=== PATIENT | female | born 1935 | race Caucasian/White ===

== ENCOUNTER 2024-01-28 11:43 | Outpatient (CLI) | payer MEDICARE, SELFPAY | END 2024-01-28 11:44 | disposition home or self-care (01) | LOC: NFLDREF 02-01 19:01 | PROVIDERS: PCP Physician Assistant Medical; Referring Provider Physician Assistant Medical; Visit Provider Physician Assistant Medical | DX: E03.8 Other specified hypothyroidism (principal); E78.2 Mixed hyperlipidemia | CPT/HCPCS: 80053; 80061; 84439; 84443 ==

== ENCOUNTER 2024-05-12 12:58 | Outpatient (CLI) | payer MEDICARE, SELFPAY | END 2024-05-12 12:59 | disposition home or self-care (01) | LOC: NFLDREF 05-13 08:29 | PROVIDERS: PCP Physician Assistant Medical; Referring Provider Physician Assistant Medical; Visit Provider Physician Assistant Medical | DX: E03.8 Other specified hypothyroidism (principal) | CPT/HCPCS: 84439; 84443 ==

== ENCOUNTER 2024-07-29 10:41 | Outpatient (CLI) | payer MEDICARE, SELFPAY | END 2024-07-29 10:42 | disposition home or self-care (01) | LOC: FRMREF 10:42 | PROVIDERS: PCP Physician Assistant Medical; Visit Provider Physician Assistant Medical | DX: E03.8 Other specified hypothyroidism (principal) | CPT/HCPCS: 84443 ==

== ENCOUNTER 2024-09-26 13:00 | Outpatient (RCR) | payer MEDICARE, SELFPAY ==
--- NOTE | 2024-08-02 11:42 | PT.OPE ---
PT [place] Out[facility] Eval PT [facility] Outpatient Eval Start: 08/02/24 10:40 Freq: Status: Active Protocol: Document 08/02/24 10:40 [place] (Rec: 08/02/24 11:20 [place] No Response) E-signed By Remigio Darby, PT, ATC Physical Therapy Outpatient Evaluation Insurance Information Insurance Name Medicare B,[employer] Medical Diagnosis R10.32 left lower quadrant pain Treating Diagnosis L groin/adductor pain Imaging Report Information X-rays in December did not show any significant hip degeneration R or L. Referring MD Baker Subjective Subjective Reports falling last spring landing upon her buttocks. X- rays performed and did not identify a fracture. Current symptoms of L inner groin pain began sometime mid to late summer and had been progressively been worsening until taking the Prednisone. Initial sitting, transferring from sit to stand and walking at times elicits the discomfort. At times it had been as high as an 8/10 but since taking the Prednisone it has declined to a 2-3/10. Lives alone in an apartment and drives independently to [employer], shopping etc.. Date of Last Physician Visit 07/29/24 Current Work Status Retired,Unemployed Precautions Weight Bearing Status Full Weight Bearing Therapy Limitations/Systems Review Not Limited Objective Range of Motion PROM R and L Flex 100 Ext 10 ER 45 IR 10 Abd 40 degrees, L end range pain producing. Strength 5/5 all patterns Resisted ABD on the L creates discomfort. Palpation Tender along proximal third of L adductor into insertion on the inferior pubis bone. Balance & Gait Normal and symmetric LE pattern. Posture Flat back-lumar, anterior pelvic tilt Sensation/Reflexes Normal and symetric. Assessment Assessment/Impression Yessica is a very pleasant and independent 89 year old woman experiencing intermittent left groin pain. L hip passive ROM , anthony Flex and IR, did not elicit symptoms. Only end range ABD and resisted ADDUC from end range did indicating a soft tissue vs. arthritic cause to her symptoms. A skilled PT program focusing on gentle stretching and antagonist before agonist strengthening is advised. Ultimately, left hip pain needs to subside to improve concentration and ability with ADL's and lessen risk for falls. Primary Functional Limitations Transitional movements Walking Plan of Care Rehabilitation Potential Good Physical Therapy Goals 1.[place] with her home ex program for stretching and strengthening. 2.Able to sit and stand transition with pain of 2/10 or less consistently once she completes course of Prednisone . 3.To walk x 10 min while shopping in absence of L groin pain. Coordination/Communication With Referral Source Treatment Plan/Direct Interventions Manual Therapy,Self-Care/Home Management,Therapeutic Activities,Therapeutic Exercises Frequency/Duration 6-12 visits Patient Will Be Discharged From Therapy Independent w/HEP, Independently Progressing Evaluation Billing Untimed Code Treatment Minutes 30 PT Eval No Charge No Complexity Low Certification Information Provider Signature Required Yes Provider Signature Shows Agreement With POC & Medical Necessity Physician NPI Number Write NPI# Here Physician Comment/Change : Physician Signature & Date Requested Please Sign/Date Here
== END 2024-09-26 15:19 | disposition home or self-care (01) ==
PROVIDERS: PCP Physician Assistant Medical; Visit Provider Family Medicine
DX: R10.32 Left lower quadrant pain (principal); Z51.89 Encounter for other specified aftercare
CPT/HCPCS: 97110; 97140; 97161

== ENCOUNTER 2025-02-16 11:30 | Outpatient (CLI) | payer MEDICARE, SELFPAY | END 2025-02-16 11:31 | disposition home or self-care (01) | LOC: NFLDREF 02-20 15:16 | PROVIDERS: PCP Physician Assistant Medical; Referring Provider Physician Assistant Medical; Visit Provider Physician Assistant Medical | DX: G25.0 Essential tremor (principal); F32.0 Major depressive disorder, single episode, mild; E03.8 Other specified hypothyroidism; E78.2 Mixed hyperlipidemia | CPT/HCPCS: 80053; 80061; 84439; 84443 ==

== ENCOUNTER 2025-05-25 14:00 | Outpatient (CLI) | payer MEDICARE, SELFPAY | END 2025-05-25 14:01 | disposition home or self-care (01) | LOC: NFLDREF 06-09 13:49 | PROVIDERS: PCP Physician Assistant Medical; Referring Provider Physician Assistant Medical; Visit Provider Physician Assistant Medical | DX: E03.8 Other specified hypothyroidism (principal) | CPT/HCPCS: 84443 ==